=== PATIENT | male | born 1960 | race Caucasian/White ===

== ENCOUNTER 2018-03-12 02:49 | Emergency (ER) | payer SELFPAY ==
[2018-03-12] MEDS ORDERED: ASPIRIN PO ONE (03:04)
[2018-03-12 03:30] LABS: Hematocrit 38.8 % (35.5-45.6); Hemoglobin 13.3 gm/dl (11.8-15.2); Mean Corpuscular HGB Conc 34 % (32-34); Mean Corpuscular Hemoglobin 32 pg (28-32); Mean Corpuscular Volume 92 fl (84-94)
[2018-03-12 03:31] LABS: Basophils # (Auto) 0.1 K/mm3 (0.0-0.1); Basophils % (Auto) 0.7 % (0.0-1.8); Eosinophils # (Auto) 0.2 K/mm3 (0.0-0.4); Eosinophils % (Auto) 1.6 % (0.0-4.3); Lymphocytes # (Auto) 3.2 K/mm3 (1.2-5.4); Lymphocytes % (Auto) 31.8 % (13.4-35.0); Monocytes # (Auto) 0.7 K/mm3 (0.0-0.8); Monocytes % (Auto) 7.2 % (0.0-7.3); Platelet Count 275 K/mm3 (140-440); Red Cell Distribution Width 13.3 % (13.2-15.2)
[2018-03-12 03:34] LABS: BUN/Creatinine Ratio 20; Blood Urea Nitrogen 16 mg/dL (9-20); Calcium 8.9 mg/dL (8.4-10.2); Hemolysis Index 6
[2018-03-12 04:40] VITALS: BP 144/74
[2018-03-12] MEDS ORDERED: TORADOL IM ONE (04:53)
[2018-03-12] MEDS ORDERED: ULTRAM PO ONE (04:53)
--- NOTE | 2018-03-12 04:53 | XRay Report ---
FINAL REPORT EXAM: XR CHEST ROUTINE 2V HISTORY: cp TECHNIQUE: PA and lateral views of the chest were submitted. FINDINGS: Heart size and mediastinum appear normal. The lungs are clear. Pleural fluid is not seen. The skeletal structures are well-maintained. IMPRESSION: No active chest disease.
[2018-03-12 04:55] LABS: Chol/HDL Ratio 5.26 %
--- NOTE | 2018-03-12 05:13 | Emergency Department Report ---
ED Chest Pain HPI - General Chief Complaint: Chest Pain Stated Complaint: CHEST PAIN Time Seen by Provider: 03/12/18 03:20 Source: patient Mode of arrival: Ambulatory Limitations: No Limitations - History of Present Illness Initial Comments: 57-year-old male with a past medical history of diet controlled diabetes presents to the hospital complains of left-sided chest pain and numbness to his distal fourth and fifth left fingers that started tonight. Left-sided chest pain is sharp and worse with deep inspiration and palpation. Pain is rated 3/ 10 in intensity. Finger paresthesias and numbness is also intermittent in and worsens with deep inspiration. Patient does carry a back pack on his shoulders often. Patient denies tobacco use, family history of CAD, previous cardiac workup, recent travel, calf tenderness, edema, nausea, vomiting, or diaphoresis. Severity scale (0 -10): 9 - Related Data Previous Rx's Medication Instructions Recorded Last Taken Type Ibuprofen [Motrin] 800 mg PO Q8HR PRN #30 tablet 03/12/18 Unknown Rx traMADol [Ultram 50 MG tab] 50 mg PO Q6HR PRN #20 tablet 03/12/18 Unknown Rx Allergies Allergy/AdvReac Type Severity Reaction Status Date / Time No Known Allergies Allergy Verified 03/12/18 03:03 Heart Score - HEART Score History: Slightly suspicious EKG: Normal Age: 45-65 Risk factors: No known risk factors Troponin: < normal limit HEART Score: 1 ED Review of Systems ROS: Stated complaint: CHEST PAIN Other details as noted in HPI Comment: All other systems reviewed and negative ED Past Medical Hx - Past Medical History Previous Medical History?: Yes Hx Diabetes: Yes - Surgical History Past Surgical History?: Yes Additional Surgical History: brown reculse bite. left ankle - Social History Smoking Status: Never Smoker Substance Use Type: None - Medications Home Medications: Home Medications Medication Instructions Recorded Confirmed Last Taken Type Ibuprofen [Motrin] 800 mg PO Q8HR PRN #30 tablet 03/12/18 Unknown Rx traMADol [Ultram 50 MG tab] 50 mg PO Q6HR PRN #20 tablet 03/12/18 Unknown Rx ED Physical Exam - General Limitations: No Limitations - Other Other exam information: General: No limitations, patient is alert in no acute distress Head exam: Atraumatic, normocephalic Eyes exam: Normal appearance, pupils equal reactive to light, extraocular movements intact ENT: Moist mucous membrane, normal oropharynx Neck exam: Normal inspection, full range of motion, no meningismus nontender Respiratory exam: Clear to auscultation bilateral, no wheezes, rales, crackles Cardiovascular: Normal rate and rhythm, reproducible left chest wall tenderness Abdomen: Soft, nondistended, and nontender, with normal bowel sounds, no rebound, or guarding Extremity: Full range of motion normal inspection no deformity Back: Normal Inspection, full range of motion, no tenderness Neurologic: Alert, oriented x3, cranial nerves intact, decrease in sensation to pinprick at the mid hand to distal finger tips of the fourth and fifth fingers. Otherwise sensation intact. Good hand crowd controller and finger flexion and extension. No other motor or sensory deficit Psychiatric: normal affect, normal mood Skin: Warm, dry, intact ED Course Vital Signs 03/12/18 03/12/18 03/12/18 02:48 02:57 03:10 Temperature 98.4 F 98.4 F 98.5 F Pulse Rate 94 H 94 H 90 Respiratory 18 18 18 Rate Blood Pressure 136/84 136/84 Blood Pressure 138/79 [Left] O2 Sat by Pulse 98 98 99 Oximetry 03/12/18 03/12/18 03/12/18 03:16 03:30 03:46 Temperature Pulse Rate 88 86 84 Respiratory 11 L 11 L 12 Rate Blood Pressure 138/79 145/81 138/79 Blood Pressure [Left] O2 Sat by Pulse 98 98 93 Oximetry 03/12/18 03/12/18 03/12/18 04:00 04:16 04:30 Temperature Pulse Rate 82 85 79 Respiratory 12 14 12 Rate Blood Pressure 140/77 140/77 144/74 Blood Pressure [Left] O2 Sat by Pulse 96 97 96 Oximetry 03/12/18 05:06 Temperature Pulse Rate Respiratory 16 Rate Blood Pressure Blood Pressure [Left] O2 Sat by Pulse Oximetry - Reevaluation(s) Reevaluation #1: 03/12/18 05:20 Patient received Toradol and tramadol for pain EVERARDO score - Everardo Score Age > 65: (0) No Aspirin use within the Past 7 Days: (0) No 3 or more CAD Risk Factors: (0) No 2 or more Angina events in past 24 hrs: (0) No Known CAD with more than 50% Stenosis: (0) No Elevated Cardiac Markers: (0) No ST Deviation Greater than 0.5mm: (0) No EVERARDO Score: 0 ED Medical Decision Making - Lab Data Result diagrams: 03/12/18 03:05 03/12/18 03:05 Lab Results 03/12/18 03/12/18 03/12/18 Range/Units 03:05 03:05 03:05 WBC 10.0 (4.5-11.0) K/mm3 RBC 4.20 (3.65-5.03) M/mm3 Hgb 13.3 (11.8-15.2) gm/dl Hct 38.8 (35.5-45.6) % MCV 92 (84-94) fl MCH 32 (28-32) pg MCHC 34 (32-34) % RDW 13.3 (13.2-15.2) % Plt Count 275 (140-440) K/mm3 Lymph % (Auto) 31.8 (13.4-35.0) % Centre % (Auto) 7.2 (0.0-7.3) % Eos % (Auto) 1.6 (0.0-4.3) % Baso % (Auto) 0.7 (0.0-1.8) % Lymph # 3.2 (1.2-5.4) K/mm3 Centre # 0.7 (0.0-0.8) K/mm3 Eos # 0.2 (0.0-0.4) K/mm3 Baso # 0.1 (0.0-0.1) K/mm3 Seg Neutrophils % 58.7 (40.0-70.0) % Seg Neutrophils # 5.9 (1.8-7.7) K/mm3 D-Dimer (0-234) ng/mlDDU Sodium 139 (137-145) mmol/L Potassium 3.9 (3.6-5.0) mmol/L Chloride 100.2 (98-107) mmol/L Carbon Dioxide 26 (22-30) mmol/L Anion Gap 17 mmol/L BUN 16 (9-20) mg/dL Creatinine 0.8 (0.8-1.5) mg/dL Estimated GFR > 60 ml/min BUN/Creatinine Ratio 20 % Glucose 155 H (75-100) mg/dL Calcium 8.9 (8.4-10.2) mg/dL Troponin T 0.027 (0.00-0.029) ng/mL Triglycerides 203 H (2-149) mg/dL Cholesterol 221 H (50-199) mg/dL LDL Cholesterol Direct 162 H (50-130) mg/dL HDL Cholesterol 42 (40-59) mg/dL Cholesterol/HDL Ratio 5.26 % 03/12/18 Range/Units 03:28 WBC (4.5-11.0) K/mm3 RBC (3.65-5.03) M/mm3 Hgb (11.8-15.2) gm/dl Hct (35.5-45.6) % MCV (84-94) fl MCH (28-32) pg MCHC (32-34) % RDW (13.2-15.2) % Plt Count (140-440) K/mm3 Lymph % (Auto) (13.4-35.0) % Centre % (Auto) (0.0-7.3) % Eos % (Auto) (0.0-4.3) % Baso % (Auto) (0.0-1.8) % Lymph # (1.2-5.4) K/mm3 Centre # (0.0-0.8) K/mm3 Eos # (0.0-0.4) K/mm3 Baso # (0.0-0.1) K/mm3 Seg Neutrophils % (40.0-70.0) % Seg Neutrophils # (1.8-7.7) K/mm3 D-Dimer 145.86 (0-234) ng/mlDDU Sodium (137-145) mmol/L Potassium (3.6-5.0) mmol/L Chloride (98-107) mmol/L Carbon Dioxide (22-30) mmol/L Anion Gap mmol/L BUN (9-20) mg/dL Creatinine (0.8-1.5) mg/dL Estimated GFR ml/min BUN/Creatinine Ratio % Glucose (75-100) mg/dL Calcium (8.4-10.2) mg/dL Troponin T (0.00-0.029) ng/mL Triglycerides (2-149) mg/dL Cholesterol (50-199) mg/dL LDL Cholesterol Direct (50-130) mg/dL HDL Cholesterol (40-59) mg/dL Cholesterol/HDL Ratio % - EKG Data -: EKG Interpreted by Me EKG shows normal: sinus rhythm, axis (qrs 13), QRS complexes (qrsd 92), ST-T waves (no stemi/t inv) Rate: normal (90) - EKG Data When compared to previous EKG there are: previous EKG unavailable - Radiology Data Radiology results: report reviewed read by radiologist xr chest: naf - Medical Decision Making Patient having paresthesias along the ulnar nerve distribution.. Does not have any elbow or wrist or shoulder pain. This pain is reproducible. Patient has a normal EKG and has a low heart and Everardo score with a negative troponin. He'll be discharged with follow-up with a primary care doctor in neurologist for further workup and management. Patient will be advised to follow up regarding his mildly elevated lipids - Differential Diagnosis neuropathy, radiculopathy, PE, MSK pain, MT, unstable angina Critical Care Time: No Critical care attestation.: If time is entered above; I have spent that time in minutes in the direct care of this critically ill patient, excluding procedure time. ED Disposition Clinical Impression: Chest wall pain, Paresthesias, Elevated lipids Disposition: DC- TO HOME OR SELFCARE Is pt being admited?: No Does the pt Need Aspirin: No Condition: Stable Instructions: Chest Pain (ED), Paresthesia (ED), Hyperlipidemia (GEN) Additional Instructions: It is very important that you follow up with your primary care doctor and neurologist for further evaluation of the numbness in your left hand. Sensation to your fourth and fifth finger is supplied by the ulnar nerve. It is possible that you have entrapment of this nerve somewhere along its course. Follow-up for further workup. Your lipid panel/cholesterol levels were elevated. Follow-up with her primary care doctors determine course of treatment. Prescriptions: Ibuprofen [Motrin] 800 mg PO Q8HR PRN #30 tablet PRN Reason: Pain traMADol [Ultram 50 MG tab] 50 mg PO Q6HR PRN #20 tablet PRN Reason: Pain Referrals: MISAEL KIRK MD [Staff Physician] - 3-5 Days (Neurologist) [facility] [Provider Group] - 3-5 Days (Primary care clinic) MIGUEL FLORES MD [Primary Care Provider] - 3-5 Days (Primary care doctor ) Time of Disposition: 05:26
== END 2018-03-12 05:45 | disposition home or self-care (01) ==
LOC: ED 02:49
DX: R07.89 Other chest pain (principal); E11.9 Type 2 diabetes mellitus without complications
CPT/HCPCS: 36415; 71046; 80048; 80061; 84484; 85025; 85379; 93005; 93010; 96372; 99284; J1885